=== PATIENT | female | born 1970 | race Caucasian/White ===

== ENCOUNTER 2016-10-25 21:36 | Emergency (ER) | payer OTHER ==
[~2016-10-25] VITALS: Ht 170.2 cm; Wt 74.8 kg
[2016-10-25 22:48] VITALS: BP 143/101
--- NOTE | 2016-10-26 00:28 | NUR ---
BIB WHEELCHAIR FROM XRAY TO ER BED 4
--- NOTE | 2016-10-26 00:37 | NUR ---
46Y F BIB SPOUSE C/O OF PAIN TO LT FOOT, AFTER SHE TWISTED HER LT FOOT WHILE GOING DOWNSTAIRS. NO S/S OF RESP DISTRESS NOTED AT THE MOMENT.
[2016-10-26] MEDS ORDERED: traMADol 50 MG TAB PO ONE (01:15)
[2016-10-26 01:30] VITALS: BP 130/80
--- NOTE | 2016-10-26 01:30 | NUR ---
Patient discharged with v/s stable. Written and verbal after care instructions given and explained BY DR. MENDEZ. Patient alert, oriented and verbalized understanding of instructions. Wheel Chair Assisted with to car. All questions addressed prior to discharge. ID band removed. Patient advised to follow up with PMD. Rx of TRAMADOL HCL given. Patient educated on indication of medication including possible reaction and side effects. Opportunity to ask questions provided and answered.
== END 2016-10-26 01:30 | disposition home or self-care (01) ==
LOC: MED 21:36
DX: S93.492A Sprain of other ligament of left ankle, initial encounter (principal); I10 Essential (primary) hypertension; Z88.5 Allergy status to narcotic agent; Z88.0 Allergy status to penicillin; Z88.2 Allergy status to sulfonamides; W10.9XXA Fall (on) (from) unspecified stairs and steps, initial encounter; Y93.89 Activity, other specified; Y92.89 Other specified places as the place of occurrence of the external cause; Y99.8 Other external cause status

== ENCOUNTER 2017-02-28 13:08 | Emergency (ER) | payer OTHER ==
[~2017-02-28] VITALS: Ht 170.2 cm; Wt 79.4 kg
[2017-02-28 13:13] VITALS: BP 130/84
--- NOTE | 2017-02-28 14:02 | NUR ---
Patient ambulated to bed 4. RN evaluating patient at bedside.
--- NOTE | 2017-02-28 14:05 | NUR ---
46/F BIB FAMILY C/O LEFT LEG PAIN x YESTERDAY @ 1000. DENIES N/V/D; SKIN IS PINK/WARM/DRY; AAOX4 WITH EVEN AND STEADY GAIT; LUNGS CLEAR BL; HR EVEN AND REGULAR; PT DENIES ANY FEVER, CP, SOB, OR COUGH AT THIS TIME; PATIENT STATES PAIN OF 10/10 AT THIS TIME; VSS; PATIENT POSITIONED FOR COMFORT; HOB ELEVATED; BEDRAILS UP X2; BED DOWN. ER MD MADE AWARE OF PT STATUS.
[2017-02-28] MEDS ORDERED: MORPHINE SULFATE 4 MG/ML SYR IM ONE (14:55)
[2017-02-28 15:38] VITALS: BP 128/82
--- NOTE | 2017-02-28 15:38 | NUR ---
Patient discharged with v/s stable. Written and verbal after care instructions given and explained. Patient alert, oriented and verbalized understanding of instructions. Ambulatory with steady gait. All questions addressed prior to discharge. ID band removed. Patient advised to follow up with PMD. Rx of VALIUM, NORCO, MOTRIN given. Patient educated on indication of medication including possible reaction and side effects. Opportunity to ask questions provided and answered.
== END 2017-02-28 15:38 | disposition home or self-care (01) ==
LOC: MED 13:08
DX: M25.551 Pain in right hip (principal); M54.9 Dorsalgia, unspecified; Z88.0 Allergy status to penicillin; Z88.2 Allergy status to sulfonamides; Z88.5 Allergy status to narcotic agent; I10 Essential (primary) hypertension; Z90.49 Acquired absence of other specified parts of digestive tract; Z90.89 Acquired absence of other organs; Z90.710 Acquired absence of both cervix and uterus; F17.200 Nicotine dependence, unspecified, uncomplicated
CPT/HCPCS: 96372; 99283; J2270

== ENCOUNTER 2018-03-03 16:23 | Emergency (ER) | payer OTHER ==
[~2018-03-03] VITALS: Ht 170.2 cm; Wt 82.1 kg
[2018-03-03 16:38] VITALS: BP 117/88
--- NOTE | 2018-03-03 16:43 | NUR ---
PATIENT AMBULATED TO ER BED 9
[2018-03-03] MEDS ORDERED: NACL 0.9% 1,000 ML IV ONE (16:45)
[2018-03-03] MEDS ORDERED: ASPIRIN 81 MG TAB.CHEW PO ONE (16:45)
[2018-03-03] MEDS ORDERED: KETOROLAC 30 MG/ML VIAL IVP ONE (16:45)
--- NOTE | 2018-03-03 17:00 | NUR ---
PT C/O CHEST PAIN AND COUGH WITH PERIODIC SOB SINCE LAST NIGHT. DENIES N/V/DIZZINESS. PT PLACED ON ALL MONITORS, VS WNL. DR FISCHERORTS SHE SMOKES TOBACCO DAILY. PT ALSO REPORTS WAKING UP THIS MORNING AND FEELING ANXIOUS. NAD NOTED/STATED OTHERWISE. DR MENDEZ AT BEDSIDE TO [facility].
--- NOTE | 2018-03-03 17:20 | NUR ---
LAB AT BEDSIDE
[2018-03-03 17:32] LABS: BASOPHILS % (AUTO) 0.5 % (0.0-2.0); EOSINOPHILS # (AUTO) 0.2 K/uL (0-0.4); EOSINOPHILS % (AUTO) 2.5 % (0.0-4.0); HEMATOCRIT 39.9 % (36-48); HEMOGLOBIN 13.2 g/dL (12.0-16.0); LYMPHOCYTES # (AUTO) 3.4 K/uL (2.5-16.5); LYMPHOCYTES % (AUTO) 43.6 % (20.5-51.1); MEAN CORPUSCULAR HEMOGLOBIN 29 pg (27-31); MEAN CORPUSCULAR HGB CONC 33 g/dL (33-37); MEAN CORPUSCULAR VOLUME 87.9 fL (80-94); MONOCYTES # (AUTO) 0.5 K/uL (0.8-1.0); MONOCYTES % (AUTO) 6.1 % (1.7-9.3); NEUTROPHILS # (AUTO) 3.7 K/uL (1.8-7.7); NEUTROPHILS % (AUTO) 47.3 % (42.2-75.2); PLATELET COUNT (AUTO) 290 K/uL (140-450); RED BLOOD CELL COUNT(AUTO) 4.54 MIL/uL (4.20-5.40); WHITE BLOOD COUNT (AUTO) 7.9 K/uL (4.8-10.8)
[2018-03-03 17:45] LABS: ANION GAP 10.7 (8-16); CARBON DIOXIDE 28.6 mmol/L (21-32); CREATININE 0.8 mg/dL (0.6-1.3); POTASSIUM 4.3 mmol/L (3.5-5.1)
[2018-03-03 17:51] LABS: ALBUMIN 3.8 g/dL (3.4-5.0); TOTAL BILIRUBIN 0.2 mg/dL (0.0-1.0)
[2018-03-03] MEDS ORDERED: LORazepam 2 MG/ML VIAL IVP ONE (18:05)
[2018-03-03 18:18] VITALS: BP 130/78
== END 2018-03-03 18:19 | disposition home or self-care (01) ==
LOC: MED 16:23
DX: M94.0 Chondrocostal junction syndrome [Tietze] (principal); R07.89 Other chest pain; I10 Essential (primary) hypertension; Z88.0 Allergy status to penicillin; F17.290 Nicotine dependence, other tobacco product, uncomplicated
CPT/HCPCS: 36415; 71045; 80053; 81002; 81025; 84484; 85025; 93005; 96374; 96375; 99285; J1885; J2060; J7030; Q0092

== ENCOUNTER 2018-07-04 20:41 | Emergency (ER) | payer OTHER ==
[~2018-07-04] VITALS: Ht 170.2 cm; Wt 80.3 kg
[2018-07-04 20:42] VITALS: BP 158/100
--- NOTE | 2018-07-04 21:35 | NUR ---
PATIENT AMBULATED TO ER BED 1.
--- NOTE | 2018-07-04 22:05 | NUR ---
PT BIB SELF C/O RT HIP PAIN S/P "SLIPPING" AT HOME THIS AM. PT DENIES FALLING. PT HAS CHRONIC RT HIP PAIN AND IS BEING SEEN BY PCP FOR S/S. PT STATES SHE CANNOT CROSS HER LEGS AND HAS INCREASED PAIN SINCE INCIDENT. PT TOOK NORCO AND MOTRIN W/ NO RELIEF. NO PMH ALLERGY TO SULFA AND PCN
--- NOTE | 2018-07-04 22:07 | NUR ---
PT C/O PAIN, FACIAL GRIMACING AND CRYING NOTED, ER MADE AWARE, MD TO SEE PT.
[2018-07-04] MEDS ORDERED: DEXAMETHASONE 10 MG/ML VIAL IM ONE (23:00)
[2018-07-04] MEDS ORDERED: oxyCODONE/APAP 5/325 MG 1 TAB TAB PO ONE (23:00)
--- NOTE | 2018-07-04 23:27 | NUR ---
PT AMBULATED OUTSIDE, EVEN STEADY GAIT, TO "GO SMOKE".
--- NOTE | 2018-07-04 23:34 | NUR ---
PT TO WAIT IN LOBBY FOR D/C
[2018-07-04 23:37] VITALS: BP 145/98
--- NOTE | 2018-07-04 23:38 | NUR ---
Patient discharged with v/s stable. Written and verbal after care instructions given and explained. Patient alert, oriented and verbalized understanding of instructions. Ambulatory with steady gait. All questions addressed prior to discharge. ID band removed. Patient advised to follow up with PMD. Rx of PERCOCET, MOTRIN given. Patient educated on indication of medication including possible reaction and side effects. Opportunity to ask questions provided and answered.
== END 2018-07-04 23:37 | disposition home or self-care (01) ==
LOC: MED 20:41
DX: S79.911A Unspecified injury of right hip, initial encounter (principal); M70.61 Trochanteric bursitis, right hip; I10 Essential (primary) hypertension; Z88.0 Allergy status to penicillin; W18.40XA Slipping, tripping and stumbling without falling, unspecified, initial encounter; Y93.89 Activity, other specified; Y92.89 Other specified places as the place of occurrence of the external cause; Y99.8 Other external cause status
CPT/HCPCS: 73502; 96372; 99284; J1100

== ENCOUNTER 2019-05-31 18:52 | Emergency (ER) | payer OTHER ==
[~2019-05-31] VITALS: Ht 170.2 cm; Wt 77.1 kg
[2019-05-31 18:55] VITALS: BP 131/94
[2019-05-31] MEDS: PHENAZOPYRIDINE 100 MG TAB PO ONE (20:59)
[2019-05-31] MEDS: KETOROLAC 30 MG/ML VIAL IM ONE (20:59)
[2019-05-31 21:15] VITALS: BP 141/99
== END 2019-05-31 21:15 | disposition home or self-care (01) ==
LOC: MED 18:52
DX: N39.0 Urinary tract infection, site not specified (principal); F17.200 Nicotine dependence, unspecified, uncomplicated; I10 Essential (primary) hypertension; Z88.0 Allergy status to penicillin; Z90.49 Acquired absence of other specified parts of digestive tract; Z90.710 Acquired absence of both cervix and uterus
CPT/HCPCS: 81002; 96372; 99283; J1885

== ENCOUNTER 2019-07-16 20:16 | Emergency (ER) | payer OTHER ==
[~2019-07-16] VITALS: Ht 170.2 cm; Wt 77.1 kg
[2019-07-16 20:25] VITALS: BP 154/100
--- NOTE | 2019-07-16 20:28 | NUR ---
TO LOBBY A/W BED AMBULATORY
--- NOTE | 2019-07-16 21:04 | NUR ---
PT TO ER BED 3
--- NOTE | 2019-07-16 21:05 | NUR ---
48/F PRESENTED TO ED WITH C/O CHEST DISCOMFORT, LIGHTHEADEDNESS. PAIN 0/10. PT STATED IT STARTED WITH EAR AND EYE DISCOMFORT. STATES "SEEING FUZZY" THEN HAD CHEST DISCOMFORT AND A "BALL FEELING" IN HER THROAT. DENIES PAIN AT THIS TIME. +N, -V, -D, -F. HYPERTENSIVE UPON TRIAGE. PMH- HTN, GERD RX- METROPOLOL 100MG, MORPHINE
[2019-07-16] MEDS ORDERED: ASPIRIN 81 MG TAB.CHEW PO ONE (21:40)
[2019-07-16 21:50] LABS: BASOPHILS % (AUTO) 0.4 % (0.0-2.0); EOSINOPHILS # (AUTO) 0.2 K/uL (0-0.4); EOSINOPHILS % (AUTO) 1.8 % (0.0-4.0); HEMATOCRIT 37.3 % (36-48); HEMOGLOBIN 12.5 g/dL (12.0-16.0); LYMPHOCYTES # (AUTO) 3.8 K/uL (2.5-16.5); LYMPHOCYTES % (AUTO) 39.4 % (20.5-51.1); MEAN CORPUSCULAR HEMOGLOBIN 31 pg (27-31); MEAN CORPUSCULAR HGB CONC 34 g/dL (33-37); MEAN CORPUSCULAR VOLUME 91.5 fL (80-94); MONOCYTES # (AUTO) 0.7 K/uL (0.8-1.0); MONOCYTES % (AUTO) 7.6 % (1.7-9.3); NEUTROPHILS # (AUTO) 4.8 K/uL (1.8-7.7); NEUTROPHILS % (AUTO) 50.8 % (42.2-75.2); PLATELET COUNT (AUTO) 327 K/uL (140-450); RED BLOOD CELL COUNT(AUTO) 4.08 MIL/uL (4.20-5.40); RED CELL DISTRIBUTION WIDTH 14.7 % (11.6-13.7); WHITE BLOOD COUNT (AUTO) 9.5 K/uL (4.8-10.8)
[2019-07-16 22:08] LABS: ANION GAP 14.1 (8-16); CARBON DIOXIDE 24.9 mmol/L (21-32); CREATININE 0.8 mg/dL (0.6-1.3)
[2019-07-16 22:14] LABS: ALBUMIN 3.4 g/dL (3.4-5.0); TOTAL BILIRUBIN 0.6 mg/dL (0.0-1.0)
--- NOTE | 2019-07-16 22:56 | NUR ---
PT SITTING UP IN BED. AT BEDSIDE. VSS. WILL CONTINUE TO MONITOR.
--- NOTE | 2019-07-16 23:48 | NUR ---
Patient discharged with v/s stable. Written and verbal after care instructions given and explained. Patient verbalized understanding. Ambulatory with steady gait. All questions addressed prior to discharge. Advised to follow up with PMD.
[2019-07-16 23:49] VITALS: BP 143/93
== END 2019-07-16 23:49 | disposition home or self-care (01) ==
LOC: MED 20:16
DX: R07.89 Other chest pain (principal); K21.9 Gastro-esophageal reflux disease without esophagitis; I10 Essential (primary) hypertension; Z88.0 Allergy status to penicillin; Z88.5 Allergy status to narcotic agent; Z88.2 Allergy status to sulfonamides
CPT/HCPCS: 36415; 71045; 80053; 83880; 84484; 85025; 93005; 99284; Q0092

== ENCOUNTER 2020-05-03 19:34 | Emergency (ER) | payer OTHER ==
[~2020-05-03] VITALS: Ht 170.2 cm; Wt 91.6 kg
[2020-05-03 19:55] VITALS: BP 133/99
--- NOTE | 2020-05-03 20:05 | NUR ---
PT TAKEN TO BED 09 VIA WHEELCHAIR. NEGATIVE COVID SCREEN
--- NOTE | 2020-05-03 20:08 | NUR ---
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
--- NOTE | 2020-05-03 20:21 | NUR ---
Dr. Robles examining patient.
[2020-05-03] MEDS ORDERED: KETOROLAC 30 MG/ML VIAL IM ONE (20:35)
[2020-05-03] MEDS ORDERED: diazePAM 5 MG TAB PO ONE (20:35)
[2020-05-03 21:10] VITALS: BP 133/99
--- NOTE | 2020-05-03 21:10 | NUR ---
DPatient discharged with v/s stable. Written and verbal after care instructions given and explained. Patient alert, oriented and verbalized understanding of instructions. Wheel Chair Assisted with to car. All questions addressed prior to discharge. ID band removed. Patient advised to follow up with PMD. Rx of VALIUM/IBUPROFEN given. Patient educated on indication of medication including possible reaction and side effects. Opportunity to ask questions provided and answered.
== END 2020-05-03 21:10 | disposition home or self-care (01) ==
LOC: MED 19:34
DX: S76.011A Strain of muscle, fascia and tendon of right hip, initial encounter (principal); M54.41 Lumbago with sciatica, right side; K21.9 Gastro-esophageal reflux disease without esophagitis; I10 Essential (primary) hypertension; Z88.5 Allergy status to narcotic agent; Z88.2 Allergy status to sulfonamides; Z88.0 Allergy status to penicillin; X58.XXXA Exposure to other specified factors, initial encounter; Y93.89 Activity, other specified; Y92.89 Other specified places as the place of occurrence of the external cause; Y99.8 Other external cause status
CPT/HCPCS: 96372; 99283; J1885

== ENCOUNTER 2020-09-16 19:22 | Emergency (ER) | payer OTHER ==
--- NOTE | 2020-09-16 19:30 | NUR ---
PT CALLED IN LOBBY AND OUTSIDE WITH ON ANSWER.
--- NOTE | 2020-09-16 19:50 | NUR ---
PT CALLED IN LOBBY AND OUTSIDE FOR SECOND TIME WITH ON ANSWER.
--- NOTE | 2020-09-16 20:00 | NUR ---
PT CALLED IN LOBBY AND OUTSIDE FOR THIRD TIME WITH NO ANSWER. PATIENT LEFT WITHOUT BEING SEEN BY DR. RUIZ. NO FURTHER CARE PROVIDED FOR PATIENT.
== END 2020-09-16 19:30 | disposition left against medical advice (07) ==
LOC: MED 19:22
DX: Z53.21 Procedure and treatment not carried out due to patient leaving prior to being seen by health care provider (principal)

== ENCOUNTER 2021-03-04 21:10 | Emergency (ER) | payer OTHER ==
[~2021-03-04] VITALS: Ht 170.2 cm; Wt 95.3 kg
[2021-03-04 21:20] VITALS: BP 110/86
--- NOTE | 2021-03-04 21:20 | NUR ---
To ED bed 11
[2021-03-04] MEDS ORDERED: KETOROLAC 60 MG/2 ML VIAL IM ONE (21:25)
--- NOTE | 2021-03-04 21:47 | NUR ---
Dr. Johnson with pt for MSE
[2021-03-04] MEDS ORDERED: IBUP-2213 PO (22:02)
[2021-03-04] MEDS ORDERED: ACET-8386 PO (22:02)
[2021-03-04 22:15] VITALS: BP 112/84
--- NOTE | 2021-03-04 22:15 | NUR ---
Patient discharged with v/s stable. Written and verbal after care instructions given and explained. Patient alert, oriented and verbalized understanding of instructions. Ambulatory with steady gait. All questions addressed prior to discharge. ID band removed. Patient advised to follow up with PMD. Rx of IBUPROFEN, HYDROCODONE/ACETAMINOPHEN given. Patient educated on indication of medication including possible reaction and side effects. Opportunity to ask questions provided and answered.
== END 2021-03-04 22:15 | disposition home or self-care (01) ==
LOC: MED 21:10
DX: M25.511 Pain in right shoulder (principal); K21.9 Gastro-esophageal reflux disease without esophagitis; I10 Essential (primary) hypertension; F17.210 Nicotine dependence, cigarettes, uncomplicated; Z88.0 Allergy status to penicillin; Z90.49 Acquired absence of other specified parts of digestive tract; X58.XXXA Exposure to other specified factors, initial encounter; Y93.89 Activity, other specified; Y92.89 Other specified places as the place of occurrence of the external cause; Y99.8 Other external cause status
CPT/HCPCS: 96372; 99283; J1885

== ENCOUNTER 2021-07-04 00:21 | Observation (INO) | payer OTHER, SELFPAY ==
[~2021-07-04] VITALS: Ht 170.2 cm; Wt 90.7 kg
[2021-07-04 00:26] VITALS: BP 122/68
--- NOTE | 2021-07-04 00:29 | NUR ---
to lobby a/w bed ambulatory
--- NOTE | 2021-07-04 01:50 | NUR ---
seenand examined by MAGALY
--- NOTE | 2021-07-04 02:00 | NUR ---
50 Y/O FEMALE C/O PAIN IN UPPER EPIGASTRIC AREA THAT RADIATES TO RIGHT ARM. PT STATES THAT SHE CANNOT TAKE A DEEP BREATH IN WITHOUT PAIN. PT CURRENTLY IN 05/22 PAIN.
[2021-07-04] MEDS ORDERED: MORPHINE SULFATE 4 MG/ML SYR IVP ONE (02:05)
[2021-07-04] MEDS ORDERED: NACL 0.9% 1,000 ML IV ONE (02:05)
[2021-07-04] MEDS ORDERED: ONDANSETRON 4 MG/2 ML VIAL IVP ONE (02:05)
[2021-07-04 02:52] LABS: BASOPHILS % (AUTO) 0.1 % (0.0-2.0); EOSINOPHILS # (AUTO) 0.3 K/uL (0-0.4); HEMOGLOBIN 13.4 g/dL (12.0-16.0); LYMPHOCYTES # (AUTO) 3.4 K/uL (2.5-16.5); LYMPHOCYTES % (AUTO) 26.2 % (20.5-51.1); MEAN CORPUSCULAR HEMOGLOBIN 30 pg (27-31); MEAN CORPUSCULAR HGB CONC 33 g/dL (33-37); MEAN CORPUSCULAR VOLUME 90.1 fL (80-94); MONOCYTES # (AUTO) 0.8 K/uL (0.8-1.0); MONOCYTES % (AUTO) 6.2 % (1.7-9.3); NEUTROPHILS # (AUTO) 8.5 K/uL (1.8-7.7); NEUTROPHILS % (AUTO) 65.5 % (42.2-75.2); PLATELET COUNT (AUTO) 346 K/uL (140-450); RED BLOOD CELL COUNT(AUTO) 4.45 MIL/uL (4.20-5.40); WHITE BLOOD COUNT (AUTO) 12.9 K/uL (4.8-10.8)
[2021-07-04 03:18] LABS: ALBUMIN 4.2 g/dL (3.4-5.0); ANION GAP 16.2 (8-16); CARBON DIOXIDE 26.2 mmol/L (21-32); CREATININE 1.2 mg/dL (0.6-1.3); POTASSIUM 4.4 mmol/L (3.5-5.1); TOTAL BILIRUBIN 0.5 mg/dL (0.0-1.0)
--- NOTE | 2021-07-04 04:10 | NUR ---
MAGALY MOVED PT TO ER BED 7
[2021-07-04] MEDS ORDERED: ACETAMINOPHEN 325 MG TAB PO PRN (04:35)
[2021-07-04] MEDS ORDERED: ONDANSETRON 4 MG/2 ML VIAL IVP PRN (04:35)
[2021-07-04] MEDS ORDERED: HYDROcodone/APAP 10/325 MG 1 TAB TAB PO ONE (06:05)
--- NOTE | 2021-07-04 06:19 | NUR ---
Texted Vick HARRISON and PICC RN [phone] for PICC insertion
--- NOTE | 2021-07-04 06:50 | NUR ---
RECEIVED REPORT FROM YINKA HARRISON, TRANSFER OF CARE AT THIS TIME.
--- NOTE | 2021-07-04 07:05 | NUR ---
ELSI SWAB COLLECTED AND EMT WALKED TO LAB
--- NOTE | 2021-07-04 07:30 | NUR ---
PICC LINE NURSE AT BEDSIDE.
--- NOTE | 2021-07-04 07:35 | NUR ---
50 Y/O FEMALE C/O RIGHT SHOULDER PAIN AND R RIB/RUQ ABD PAIN XLAST NIGHT. PT REPORTS THAT THE PAIN "TAKES HER BREATH AWAY". PT STATES THAT ITS HARD TO TAKE A DEEP BREATH. SPO2 97% RA. PT DENIES INJURY. PT ALSO REPORTS NAUSEA, DENIES VOMITING. PT DENIES INJURY/TRAUMA. PT A/O X4 WITH EVEN AND UNLABORED RESPIRATIONS, NO SIGNS OF DISTRESS. PMH:HTN, GERD ALLERGIES:PCN, SULFA, CODEINE
--- NOTE | 2021-07-04 07:41 | NUR ---
RAD AT BEDSIDE
[2021-07-04] MEDS ORDERED: HYDROcodone/APAP 10/325 MG 1 TAB TAB ONE (08:38)
[2021-07-04] MEDS: NACL 0.9% 1,000 ML IV SCH ×3 (08:45→23:42)
--- NOTE | 2021-07-04 09:23 | NUR ---
PT AMBULATED TO RESTROOM FOR URINE SAMPLE
[2021-07-04 10:02] LABS: APPEARANCE,URINE SL CLOUDY (CLEAR); BILIRUBIN,URINE NEGATIVE (NEGATIVE); BLOOD, URINE 1+ (NEGATIVE); COLOR,URINE YELLOW (YELLOW); LEUKOCYTE ESTERASE ,URINE 1+ (NEGATIVE); NITRITE, URINE POSITIVE (NEGATIVE); UGLUCOSE NEGATIVE (NEGATIVE)
[2021-07-04] MEDS ORDERED: MSCON15 PO (10:41)
[2021-07-04] MEDS ORDERED: LISI-486 PO (10:41)
[2021-07-04] MEDS ORDERED: OMEP40EC23 PO (10:41)
[2021-07-04 10:42] LABS: RBC,URINE 0-5 /HPF (0-5); WBC,URINE 16-25 (MOD) /HPF (0-5)
[2021-07-04] MEDS: ENOXAPARIN 40 MG/0.4 ML SYR SUBQ SCH (11:06)
--- NOTE | 2021-07-04 11:20 | NUR ---
PT C/O 8/10 PAIN AND REQUESTING PAIN MEDICATION. PAGED/SPOKE WITH DR MCNAMARA FOR ORDERS RECEIVED VERBAL ORDER OF 4MG MORPHINE IVPUSH PRN 6QHR FOR SEVERE PAIN. ALSO RECEIVED VERBAL ORDER FOR NPO.
--- NOTE | 2021-07-04 11:25 | NUR ---
GAVE REPORT TO SANG HARRISON FOR ADMISSION TO TELEMETRY
--- NOTE | 2021-07-04 11:33 | NUR ---
Patient will be admitted to care of DR MCNAMARA. Admited to TELEMETRY. Will go to room 112B. Belongings list completed. Report to SANG HARRISON.
--- NOTE | 2021-07-04 11:50 | NUR ---
RECEIVED PT FROM ER PATIENT ALERT, ORIENTED, X4 C/O PAIN ON RIGHT ABDOMINAL PAIN, NO NAUSEA AND VOMITTING NOTED, ON ROOM AIR, SKIN WARM TO TOUCH RESP. EVEN AND UNLABORED, FAMILY AT BEDSIDE, PICCLINE ON RIGHT FOREARM, KEEP CALL LIGHT WITHIN EASY REACH.
--- NOTE | 2021-07-04 12:03 | NUR ---
PER PATIENT PREFER NOT TO DO BODY ASSESSMENT, CLAIMED MY SKIN IS INTACT
[2021-07-04] MEDS: MORPHINE SULFATE 4 MG/ML SYR IVP PRN (12:04)
--- NOTE | 2021-07-04 12:04 | NUR ---
DR. MCNAMARA AT BEDSIDE
[2021-07-04 12:10] VITALS: BP 111/76
--- NOTE | 2021-07-04 14:00 | NUR ---
PATIENT SITTING IN BED WATCHING TV. NO DISTRESS NOTED. CONDITION UNCHANGED. WILL CONTINUE TO MONITOR.
[2021-07-04] MEDS ORDERED: NICOTINE TRANSD SYS 21 MG/24 HR PATCH TD SCH (14:30)
[2021-07-04 16:00] VITALS: BP 109/75
[2021-07-04] MEDS: KETOROLAC 15 MG/ML VIAL IVP SCH (17:23)
[2021-07-04] MEDS: NITROFURANTOIN 100 MG CAP PO SCH (17:23)
--- NOTE | 2021-07-04 17:23 | NUR ---
SCHEDULED MEDICATIONS DUE GIVEN. WILL CONTINUE TO MONITOR.
[2021-07-04] MEDS ORDERED: KETOROLAC 15 MG/ML VIAL IM SCH (18:00)
--- NOTE | 2021-07-04 19:30 | NUR ---
GAVE REPORT TO ABORIGINAL CEREMONIAL CELEBRANT NURSE FOR CONTINUITY OF CARE. PATIENT IN STABLE CONDITION.
[2021-07-04 20:00] VITALS: BP 139/87
[2021-07-05] VITALS: BP 113/80
[2021-07-05 04:00] VITALS: BP 140/95
[2021-07-05] MEDS: KETOROLAC 15 MG/ML VIAL IVP SCH ×3 (06:33→12:53)
--- NOTE | 2021-07-05 07:33 | NUR ---
Assumed care last night. Pt remained sleeping most of the time. We managed pain around the clock. Has a PICC line and is on IV fluids. Able to turn self, and she is ambulatory. Care has been endorsed to Marline HARRISNO AM shift.
[2021-07-05 07:38] LABS: ALBUMIN 3.1 g/dL (3.4-5.0); ANION GAP 12.7 (8-16); CARBON DIOXIDE 23.1 mmol/L (21-32); CREATININE 0.8 mg/dL (0.6-1.3); MAGNESIUM 1.7 mg/dL (1.8-2.4); POTASSIUM 3.8 mmol/L (3.5-5.1); TOTAL BILIRUBIN 0.4 mg/dL (0.0-1.0)
[2021-07-05 08:00] VITALS: BP 121/87
--- NOTE | 2021-07-05 08:10 | NUR ---
RECEIVED PT AWAKE, CLAIMED I AM IN PAIN, WILL MEDICATE ORDER, ON ROOM AIR, SKIN WARM TO TOUCH RESP. EVEN AND UNLABORED, NO DISTRESS NOTED.
--- NOTE | 2021-07-05 08:38 | NUR ---
PICCLINE INTACT 2 PORT FLUSHED WITH NORMAL SALINE 10ML EACH PORT, WITH GOOD BLOOD RETURN
[2021-07-05] MEDS: NITROFURANTOIN 100 MG CAP PO SCH (08:42)
[2021-07-05] MEDS: MORPHINE SULFATE 4 MG/ML SYR IVP PRN (08:43)
[2021-07-05] MEDS: ENOXAPARIN 40 MG/0.4 ML SYR SUBQ SCH (08:48)
[2021-07-05 12:00] VITALS: BP 126/89
--- NOTE | 2021-07-05 12:28 | NUR ---
DR MCNAMARA HERE, AWARE MAGNESIUM LEVEL 1.7
[2021-07-05] MEDS ORDERED: MAGNESIUM OXIDE 400 MG TAB PO SCH (13:00)
[2021-07-05] MEDS ORDERED: MELO7.5T11 PO (13:24)
[2021-07-05] MEDS ORDERED: ACET-1182 PO (13:24)
[2021-07-05] MEDS ORDERED: NICO-532 TD (13:24)
[2021-07-05] MEDS ORDERED: NITR100C15 PO (13:24)
[2021-07-05] MEDS ORDERED: LID5T TP (13:26)
[2021-07-05] MEDS ORDERED: NICOTINE TRANSD SYS 21 MG/24 HR PATCH TD SCH (14:00)
--- NOTE | 2021-07-05 14:20 | NUR ---
PICCLINE REMOVED ON RIGHT UPPER ARM, NO BLEEDING NOTED, PATIENT AAO X4, NO SOB NOTED. DISCHARGED INSTRUCTION GIVEN , AWARE NEED TO FOLLOW UP WITH PRIMARY MD. PATIENT PICKED UP BY [facility] VIA PRIVATE CAR, PATIENT AMBULATORY
== END 2021-07-05 14:15 | disposition home or self-care (01) ==
LOC: MED 00:21 → MTU 04:35 → INTOOBSV 08:07 → UNDOADMOB 08:07 → MTU 10:11 → UNDODISOB 07-05 14:15
PROVIDERS: ADMIT Student in an Organized Health Care Education/Training Program; ATTEND Student in an Organized Health Care Education/Training Program
DX: I71.4 Abdominal aortic aneurysm, without rupture (principal); Z20.822 Contact with and (suspected) exposure to COVID-19; K21.9 Gastro-esophageal reflux disease without esophagitis; N39.0 Urinary tract infection, site not specified; I10 Essential (primary) hypertension; F41.9 Anxiety disorder, unspecified; F17.210 Nicotine dependence, cigarettes, uncomplicated; Z88.0 Allergy status to penicillin; Z79.899 Other long term (current) drug therapy; Z90.710 Acquired absence of both cervix and uterus; Z71.6 Tobacco abuse counseling
CPT/HCPCS: 36415; 71045; 71250; 74176; 80053; 81001; 82150; 83690; 83735; 85025; 85610; 87081; 87086; 87426; 93005; 96361; 96372; 96374; 96375; 96376; 99291; 99406; G0378; J1650; J1885; J2270; J2405

== ENCOUNTER 2021-11-21 15:48 | Emergency (ER) | payer OTHER, SELFPAY ==
[~2021-11-21] VITALS: Ht 170.2 cm; Wt 87.1 kg
[~2021-11-21 15:48] MED LIST: ACET-1182 PO; LID5T TP; LISI-486 PO; MELO7.5T11 PO; MSCON15 PO; NICO-532 TD; NITR100C15 PO; OMEP40EC23 PO
[2021-11-21 16:04] VITALS: BP 142/112
--- NOTE | 2021-11-21 17:15 | NUR ---
DR FLOWER ATTEMPTED TO EVALUATE PT, NO ANSWER IN LOBBY/OUTSIDE
[2021-11-21] MEDS ORDERED: ONDANSETRON 4 MG/2 ML VIAL IVP ONE (17:45)
[2021-11-21] MEDS ORDERED: KETOROLAC 15 MG/ML VIAL IVP ONE (17:45)
--- NOTE | 2021-11-21 17:48 | NUR ---
PT AMBULATED TPO ER BED 3
--- NOTE | 2021-11-21 18:00 | NUR ---
51/F BIB SELF WITH C/O RUQ PAIN SINCE TODAY, STATES SHE WAS CONSTIPATED X3 DAYS AND HAD A SMALL BOWEL MOVEMENT TODAY, STATES SHES HAD PAIN SINCE. PATIENT ALSO C/O PAIN AND CELLULITIS TO RIGHT LOWER LEG SINCE YESTERDAY, DENIES INJURY OR TRAUMA. PT STATES HAD A SMALL BOWEL OBSTRUCTION AND REQUIRED NGT TO SUCTION 8 MONTHS AGO. SKIN IS PINK/WARM/DRY; AAOX4 WITH EVEN AND STEADY GAIT; LUNGS CLEAR BL; HR EVEN AND REGULAR; PT DENIES ANY FEVER, CP, SOB, OR COUGH AT THIS TIME; PATIENT STATES PAIN OF 10/10 AT THIS TIME; VSS; PATIENT POSITIONED FOR COMFORT; HOB ELEVATED; BEDRAILS UP X2; BED DOWN. ER MD MADE AWARE OF PT STATUS. MEDHX: HTN, GERD ALLERGIES: PENICILLINS, SULFA.
--- NOTE | 2021-11-21 18:20 | NUR ---
3X ATTEMPTED TO INSERT IV, UNSUCCESSFUL. PT STTATES SHE HAS HAS PICC LINE IN THE PAST. ER MADE AWARE.
--- NOTE | 2021-11-21 19:30 | NUR ---
ENDORSED BEDSIDE REPORT TO LOTTIEAPRYL SANCHES RN FOR CONTINUITY OF CARE.
--- NOTE | 2021-11-21 19:34 | NUR ---
[id number] NUMBER WHEN PT DISCHARGED
--- NOTE | 2021-11-21 20:50 | NUR ---
LABS AT BEDSIDE FOR REDRAW
[2021-11-21 21:12] LABS: BASOPHILS % (AUTO) 0.4 % (0.0-2.0); EOSINOPHILS # (AUTO) 0.1 K/uL (0-0.4); HEMATOCRIT 37.4 % (36-48); HEMOGLOBIN 12.4 g/dL (12.0-16.0); LYMPHOCYTES # (AUTO) 1.5 K/uL (2.5-16.5); MEAN CORPUSCULAR HEMOGLOBIN 29 pg (27-31); MEAN CORPUSCULAR HGB CONC 33 g/dL (33-37); MONOCYTES # (AUTO) 0.5 K/uL (0.8-1.0); MONOCYTES % (AUTO) 5.3 % (1.7-9.3); NEUTROPHILS # (AUTO) 7.2 K/uL (1.8-7.7); NEUTROPHILS % (AUTO) 77.3 % (42.2-75.2); PLATELET COUNT (AUTO) 272 K/uL (140-450); RED BLOOD CELL COUNT(AUTO) 4.25 MIL/uL (4.20-5.40); RED CELL DISTRIBUTION WIDTH 14.2 % (11.6-13.7); WHITE BLOOD COUNT (AUTO) 9.4 K/uL (4.8-10.8)
[2021-11-21 21:26] LABS: ANION GAP 10.3 (8-16); CARBON DIOXIDE 26.8 mmol/L (21-32); CREATININE 0.7 mg/dL (0.6-1.3); POTASSIUM 4.1 mmol/L (3.5-5.1)
[2021-11-21 21:33] LABS: ALBUMIN 3.4 g/dL (3.4-5.0); BILIRUBIN,DIRECT 0.1 mg/dL (0.0-0.3); TOTAL BILIRUBIN 0.5 mg/dL (0.0-1.0)
--- NOTE | 2021-11-21 21:55 | NUR ---
PT RETURNED FROM CT
[2021-11-21] MEDS ORDERED: CLIN300C52 PO (22:16)
[2021-11-21 22:49] VITALS: BP 142/112
--- NOTE | 2021-11-21 22:49 | NUR ---
Patient discharged with v/s stable. Written and verbal after care instructions given and explained. Patient alert, oriented and verbalized understanding of instructions. Ambulatory with steady gait. All questions addressed prior to discharge. ID band removed. Patient advised to follow up with PMD. Rx of Clindamycin given. Patient educated on indication of medication including possible reaction and side effects. Opportunity to ask questions provided and answered. VSS, A/OX4, AMBULATORY, UNALBORED BREATHING, AND CALM DEMEANOR.
== END 2021-11-21 22:49 | disposition home or self-care (01) ==
LOC: MED 15:48
DX: L03.115 Cellulitis of right lower limb (principal); R11.0 Nausea; K59.00 Constipation, unspecified; K21.9 Gastro-esophageal reflux disease without esophagitis; I10 Essential (primary) hypertension; Z90.49 Acquired absence of other specified parts of digestive tract; Z90.710 Acquired absence of both cervix and uterus; Z79.899 Other long term (current) drug therapy; Z88.0 Allergy status to penicillin; Z88.2 Allergy status to sulfonamides; Z88.5 Allergy status to narcotic agent
CPT/HCPCS: 36415; 74018; 74177; 80048; 80076; 83605; 83690; 85025; 87040; 96374; 96375; 99285; J1885; J2405; Q0092; Q9967

== ENCOUNTER 2022-03-31 00:53 | Emergency (ER) | payer OTHER ==
[~2022-03-31] VITALS: Ht 170.2 cm; Wt 87.1 kg
[~2022-03-31 00:53] MED LIST changes: +CLIN300C52 PO
[2022-03-31 01:04] VITALS: BP 150/108
--- NOTE | 2022-03-31 01:49 | NUR ---
52 yo bib abdominal pain x3 days / pain started in back/shoulder that radiates to r middle quadrant. pt states she feel weak x a couple months . pt states nausea x 3 days. pt denies vomiting. pt denies f/d. pt states cough due to smoking pmh: htn, skin cancer rx: metoprolol surgery: gallbladder removal, appendix removal, hysterectomy , colon surgery, social hx: cigarette smoker daily socially drinkning.
[2022-03-31 01:58] LABS: APPEARANCE,URINE SL CLOUDY (CLEAR); BILIRUBIN,URINE NEGATIVE (NEGATIVE); BLOOD, URINE TRACE-I (NEGATIVE); COLOR,URINE YELLOW (YELLOW); LEUKOCYTE ESTERASE ,URINE TRACE (NEGATIVE); NITRITE, URINE POSITIVE (NEGATIVE); UGLUCOSE NEGATIVE (NEGATIVE)
[2022-03-31] MEDS ORDERED: MORPHINE SULFATE 4 MG/ML SYR IM ONE (02:30)
[2022-03-31 02:33] LABS: POTASSIUM 3.9 mmol/L (3.5-5.1)
[2022-03-31 02:35] LABS: TOTAL BILIRUBIN 0.4 mg/dL (0.0-1.0)
--- NOTE | 2022-03-31 02:50 | NUR ---
PT BACK FROM CT
[2022-03-31 02:54] LABS: WBC,URINE 20-60 /HPF (0-5)
--- NOTE | 2022-03-31 05:00 | NUR ---
.Patient appears to be resting comfortably in bed. Vital Signs within normal limits. Respirations even and unlabored. 3 SIDE RAILS UP
[2022-03-31] MEDS ORDERED: NITR100C7 PO (05:35)
[2022-03-31] MEDS ORDERED: ACET-8386 PO (05:35)
[2022-03-31] MEDS ORDERED: NAPR-54 PO (05:36)
[2022-03-31 05:50] VITALS: BP 146/98
--- NOTE | 2022-03-31 05:50 | NUR ---
Patient discharged with v/s stable. Written and verbal after care instructions given and explained. Patient alert, oriented and verbalized understanding of instructions. Ambulatory with steady gait. All questions addressed prior to discharge. ID band removed. Patient advised to follow up with PMD. Rx of NAPROSYN AND MACROBID given. Opportunity to ask questions provided and answered.
== END 2022-03-31 05:50 | disposition home or self-care (01) ==
LOC: MED 00:53
DX: N39.0 Urinary tract infection, site not specified (principal); K21.9 Gastro-esophageal reflux disease without esophagitis; I10 Essential (primary) hypertension; F17.210 Nicotine dependence, cigarettes, uncomplicated; Z88.0 Allergy status to penicillin; Z88.5 Allergy status to narcotic agent; Z88.2 Allergy status to sulfonamides; Z79.899 Other long term (current) drug therapy; Z90.49 Acquired absence of other specified parts of digestive tract
CPT/HCPCS: 36415; 74176; 80053; 81001; 83690; 87086; 96372; 99285; J2270

== ENCOUNTER 2022-04-10 15:29 | Emergency (ER) | payer OTHER ==
[~2022-04-10] VITALS: Ht 170.2 cm; Wt 85.3 kg
[~2022-04-10 15:29] MED LIST changes: +NAPR-54 PO; +NITR100C7 PO
[2022-04-10 15:59] VITALS: BP 144/106
[2022-04-10] MEDS ORDERED: ONDANSETRON 4 MG ODT PO ONE (16:20)
[2022-04-10] MEDS ORDERED: DICYCLOMINE HCL LIQUID 20 MG, ALUMINUM HYD/MAG/SIMETHICONE 30 ML, LIDOCAINE VISCOUS 2% ... PO ONE ×3 (16:20)
[2022-04-10] MEDS ORDERED: HYDROcodone/APAP 5/325 MG 1 TAB TAB PO ONE (16:20)
[2022-04-10 16:39] LABS: BASOPHILS % (AUTO) 0.3 % (0.0-2.0); EOSINOPHILS % (AUTO) 0.6 % (0.0-4.0); HEMATOCRIT 41.4 % (36-48); HEMOGLOBIN 13.7 g/dL (12.0-16.0); LYMPHOCYTES # (AUTO) 2.5 K/uL (2.5-16.5); LYMPHOCYTES % (AUTO) 38.4 % (20.5-51.1); MEAN CORPUSCULAR HEMOGLOBIN 29 pg (27-31); MEAN CORPUSCULAR HGB CONC 33 g/dL (33-37); MEAN CORPUSCULAR VOLUME 86.2 fL (80-94); MONOCYTES # (AUTO) 0.3 K/uL (0.8-1.0); MONOCYTES % (AUTO) 5.3 % (1.7-9.3); NEUTROPHILS # (AUTO) 3.6 K/uL (1.8-7.7); NEUTROPHILS % (AUTO) 55.4 % (42.2-75.2); PLATELET COUNT (AUTO) 264 K/uL (140-450); RED BLOOD CELL COUNT(AUTO) 4.81 MIL/uL (4.20-5.40); RED CELL DISTRIBUTION WIDTH 14.3 % (11.6-13.7); WHITE BLOOD COUNT (AUTO) 6.5 K/uL (4.8-10.8)
[2022-04-10] MEDS ORDERED: ALUMINUM HYD/MAG/SIMETHICONE 30 ML UDC ONE (16:39)
[2022-04-10] MEDS ORDERED: DICYCLOMINE HCL LIQUID 10 MG/5 ML UDC ONE (16:39)
--- NOTE | 2022-04-10 16:45 | NUR ---
51/F PRESENTS TO ED WITH C/O RUQ PAIN X2 DAYS, PATIENT ALSO REPORTS N/V/D TODAY. DENIES TAKING MEDS FOR SYMPTOMS, STATES SHE RECENTLY GOT OVER COLD SYMPTOMS AND PAIN FOLLOWED SOON AFTER. DENIES URINARY SYMPTOMS, FEVERS, CHILLS.
[2022-04-10 16:50] LABS: APPEARANCE,URINE CLEAR (CLEAR); BILIRUBIN,URINE NEGATIVE (NEGATIVE); BLOOD, URINE NEGATIVE (NEGATIVE); COLOR,URINE YELLOW (YELLOW); LEUKOCYTE ESTERASE ,URINE NEGATIVE (NEGATIVE); NITRITE, URINE NEGATIVE (NEGATIVE); UGLUCOSE NEGATIVE (NEGATIVE)
[2022-04-10 17:07] LABS: ALBUMIN 3.8 g/dL (3.4-5.0); ANION GAP 12.4 (8-16); CARBON DIOXIDE 26.5 mmol/L (21-32); CREATININE 0.8 mg/dL (0.6-1.3); POTASSIUM 3.9 mmol/L (3.5-5.1); TOTAL BILIRUBIN 0.6 mg/dL (0.0-1.0)
[2022-04-10] MEDS ORDERED: MAG355OR2 PO (17:32)
[2022-04-10] MEDS ORDERED: ONDA-188 PO (17:32)
[2022-04-10] MEDS ORDERED: FAMO-90 PO (17:32)
[2022-04-10 17:45] VITALS: BP 144/106
--- NOTE | 2022-04-10 17:45 | NUR ---
Patient discharged with v/s stable. Written and verbal after care instructions given and explained. Patient alert, oriented and verbalized understanding of instructions. Ambulatory with steady gait. All questions addressed prior to discharge. ID band removed. Patient advised to follow up with PMD. Rx of PEPCID, ZOFRAN, AND MAALOX given. Patient educated on indication of medication including possible reaction and side effects. Opportunity to ask questions provided and answered. DR. CAMP STATED IT WAS OKAY TO DISCHARGE PT WITH TRIAGE VITALS.
== END 2022-04-10 17:45 | disposition home or self-care (01) ==
LOC: MED 15:29
DX: K29.70 Gastritis, unspecified, without bleeding (principal); F17.200 Nicotine dependence, unspecified, uncomplicated; I10 Essential (primary) hypertension; K21.9 Gastro-esophageal reflux disease without esophagitis; Z88.0 Allergy status to penicillin; Z88.2 Allergy status to sulfonamides; Z88.5 Allergy status to narcotic agent
CPT/HCPCS: 36415; 80053; 81003; 83690; 85025; 99284; Q0162

== ENCOUNTER 2022-09-25 23:23 | Emergency (ER) | payer OTHER ==
[~2022-09-25] VITALS: Ht 170.2 cm; Wt 88.5 kg
[~2022-09-25 23:23] MED LIST changes: +FAMO-90 PO; +MAG355OR2 PO; +ONDA-188 PO
[2022-09-25 23:45] VITALS: BP 139/87
--- NOTE | 2022-09-25 23:48 | NUR ---
TO LOBBY A/W BED AMBULATORY
[2022-09-26] MEDS ORDERED: KETOROLAC 60 MG/2 ML VIAL IM ONE (00:05)
[2022-09-26] MEDS ORDERED: NAPR-54 PO (00:46)
[2022-09-26 00:57] VITALS: BP 124/78
== END 2022-09-26 00:57 | disposition home or self-care (01) ==
LOC: MED 23:23
DX: M77.8 Other enthesopathies, not elsewhere classified (principal); K21.9 Gastro-esophageal reflux disease without esophagitis; I10 Essential (primary) hypertension; Z79.899 Other long term (current) drug therapy; Z88.5 Allergy status to narcotic agent; Z88.0 Allergy status to penicillin
CPT/HCPCS: 73030; 96372; 99283; J1885

== ENCOUNTER 2022-12-21 22:21 | Emergency (ER) | payer OTHER ==
[~2022-12-21] VITALS: Ht 170.2 cm; Wt 90.3 kg
[2022-12-21 22:48] VITALS: BP 146/97
--- NOTE | 2022-12-22 01:04 | NUR ---
Patient taken to bed 12.
--- NOTE | 2022-12-22 01:45 | NUR ---
MD BROUSSARD AT BEDSIDE EXAMINING PT.
[2022-12-22] MEDS ORDERED: KETOROLAC 30 MG/ML VIAL IM ONE (02:15)
[2022-12-22] MEDS ORDERED: HYDROcodone/APAP 5/325 MG 1 TAB TAB PO ONE (02:15)
--- NOTE | 2022-12-22 02:25 | NUR ---
PT MEDICATED ORDERED; TOLERATED WELL.
[2022-12-22] MEDS ORDERED: ACET-8905 PO (03:16)
[2022-12-22] MEDS ORDERED: CLIN300C2 PO (03:16)
[2022-12-22] MEDS ORDERED: NAPR-54 PO (03:18)
[2022-12-22 03:37] VITALS: BP 132/89
--- NOTE | 2022-12-22 03:39 | NUR ---
Patient discharged with v/s stable. Written and verbal after care instructions given and explained. Patient alert, oriented and verbalized understanding of instructions. Ambulatory with steady gait. All questions addressed prior to discharge. ID band removed. Patient advised to follow up with PMD. Rx of Cleocin and Naproxen given. Patient educated on indication of medication including possible reaction and side effects. Opportunity to ask questions provided and answered.
== END 2022-12-22 03:39 | disposition home or self-care (01) ==
LOC: MED 22:21
DX: N76.4 Abscess of vulva (principal); K21.9 Gastro-esophageal reflux disease without esophagitis; I10 Essential (primary) hypertension; Z90.49 Acquired absence of other specified parts of digestive tract; Z79.899 Other long term (current) drug therapy; Z79.1 Long term (current) use of non-steroidal anti-inflammatories (NSAID); Z79.2 Long term (current) use of antibiotics; Z88.0 Allergy status to penicillin; Z88.2 Allergy status to sulfonamides; Z88.5 Allergy status to narcotic agent
CPT/HCPCS: 96372; 99284; J1885

== ENCOUNTER 2023-06-24 01:00 | Emergency (ER) | payer OTHER ==
[~2023-06-24] VITALS: Ht 175.3 cm; Wt 90.7 kg
[~2023-06-24 01:00] MED LIST changes: +CLIN300C2 PO
[2023-06-24 01:04] VITALS: BP 153/105; PULSE 98; RESP 16; TEMP 98.4; O2SAT 98
[2023-06-24] MEDS ORDERED: HYDROcodone/APAP 5/325 MG 1 TAB TAB PO ONE (02:10)
[2023-06-24] MEDS ORDERED: ACET-8905 PO (02:11)
[2023-06-24] MEDS ORDERED: CLIN150C1 PO (02:11)
[2023-06-24 02:30] VITALS: BP 137/89; PULSE 87; RESP 16; TEMP 98.4; O2SAT 98
== END 2023-06-24 02:30 | disposition home or self-care (01) ==
LOC: MED 01:00
DX: L03.314 Cellulitis of groin (principal); I10 Essential (primary) hypertension; K21.9 Gastro-esophageal reflux disease without esophagitis; Z88.0 Allergy status to penicillin; Z88.2 Allergy status to sulfonamides; Z88.5 Allergy status to narcotic agent; Z79.899 Other long term (current) drug therapy; Z90.49 Acquired absence of other specified parts of digestive tract; Z90.710 Acquired absence of both cervix and uterus
CPT/HCPCS: 99284

== ENCOUNTER 2024-02-16 19:51 | Emergency (ER) | payer OTHER ==
[~2024-02-16] VITALS: Ht 175.3 cm; Wt 95.3 kg
[~2024-02-16 19:51] MED LIST changes: +ACET-10509 PO; +ACET-8905 PO; +CLIN150C1 PO; +HYDR-2849 PO; -LISI-486 PO; +MELO-176 PO; -MSCON15 PO; +NAPR-337 PO; -NAPR-54 PO
[2024-02-16 20:29] VITALS: BP 151/104; PULSE 101; RESP 16; TEMP 97.4; O2SAT 100
[2024-02-16] MEDS: ACETAMINOPHEN EXTRA STRENGTH 500 MG TAB PO ONE (23:05)
[2024-02-16] MEDS: diazePAM 5 MG TAB PO ONE (23:05)
[2024-02-16] MEDS: KETOROLAC 30 MG/ML VIAL IM ONE (23:05)
[2024-02-16 23:47] VITALS: BP 142/81; PULSE 87; RESP 16; TEMP 97.4; O2SAT 100
== END 2024-02-16 23:47 | disposition home or self-care (01) ==
LOC: MED 19:51
DX: G89.29 Other chronic pain (principal); M25.511 Pain in right shoulder; K21.9 Gastro-esophageal reflux disease without esophagitis; I10 Essential (primary) hypertension; Z79.1 Long term (current) use of non-steroidal anti-inflammatories (NSAID); Z79.2 Long term (current) use of antibiotics; Z79.899 Other long term (current) drug therapy; Z88.0 Allergy status to penicillin; Z88.2 Allergy status to sulfonamides; Z88.5 Allergy status to narcotic agent
CPT/HCPCS: 96372; 99283; J1885